=== PATIENT | female | born 1955 | race Hispanic/Latino ===

== ENCOUNTER 2021-04-02 10:27 | Outpatient (CLI) | payer MEDICAID, MEDICARE ==
[2021-04-02 17:42] LABS: SARS-CoV-2 PCR by NAA Not Detected (NotDetected)
== END 2021-04-02 10:28 | disposition home or self-care (01) ==
LOC: CSHLAB 10:27
PROVIDERS: ATTEND Internal Medicine Gastroenterology
DX: Z20.822 Contact with and (suspected) exposure to COVID-19 (principal); R10.9 Unspecified abdominal pain; K74.60 Unspecified cirrhosis of liver
CPT/HCPCS: U0003; U0005

== ENCOUNTER 2021-04-07 05:56 | Day surgery (SDC) | payer MEDICARE, OTHER ==
[2021-03-27 12:05] VITALS: BMI 47.8
[2021-04-07] MEDS ORDERED: Lidocaine 1% MPF 2 ML VIAL ONE (07:09)
[2021-04-07] MEDS ORDERED: PROPOFOL 40 ML ONE (07:58)
== END 2021-04-07 10:15 | disposition home or self-care (01) ==
LOC: CSHSDC 05:56
PROVIDERS: ATTEND Internal Medicine Gastroenterology
PROC: 0DB68ZZ Excision of Stomach, Via Natural or Artificial Opening Endoscopic (ICD-10-PCS; principal; 2021-04-07)
DX: K25.9 Gastric ulcer, unspecified as acute or chronic, without hemorrhage or perforation (principal); K70.30 Alcoholic cirrhosis of liver without ascites; I85.10 Secondary esophageal varices without bleeding; K44.9 Diaphragmatic hernia without obstruction or gangrene; K29.80 Duodenitis without bleeding; I10 Essential (primary) hypertension; E11.9 Type 2 diabetes mellitus without complications; E78.5 Hyperlipidemia, unspecified; E66.9 Obesity, unspecified; F41.9 Anxiety disorder, unspecified; F32.A Depression, unspecified
CPT/HCPCS: 88305; 88312; J2704